=== PATIENT | female | born 1995 | race Caucasian/White ===

== ENCOUNTER 2019-07-06 09:32 | Day surgery (SDC) | payer SELFPAY ==
[2019-07-02 11:37] VITALS: BMI 29.7
[2019-07-06] MEDS ORDERED: TETRACAINE 0.5% OPHTH SOLN 2 ML BOTTLE ONE (11:26)
[2019-07-06] MEDS ORDERED: LIDOCAINE 1%/EPI 1:100000 (20 ML MULTI DOSE VIAL) ONE (11:26)
[2019-07-06] MEDS ORDERED: ERYTHROMYCIN 0.5% OPHTHALMIC OINTMENT 3.5 GM TUBE ONE (11:26)
[2019-07-06] MEDS ORDERED: POVIDONE-IODINE 5% OPHTHALMIC PREP 30 ML SOLUTION ONE (11:26)
[2019-07-06] MEDS ORDERED: MIDAZOLAM HCL 2 MG/2 ML SINGLE DOSE VIAL ONE ×2 (11:45→12:09)
[2019-07-06] MEDS ORDERED: GLYCOPYRROLATE 0.2 MG/1 ML VIAL ONE (11:50)
[2019-07-06] MEDS ORDERED: PROPOFOL 20 ML ONE ×4 (11:53→12:12)
[2019-07-06] MEDS ORDERED: ceFAZolin SODIUM 1 GM VIAL ONE (11:59)
[2019-07-06] MEDS ORDERED: ONDANSETRON 4 MG/2 ML VIAL IVPUSH PRN (12:37)
[2019-07-06] MEDS ORDERED: oxyCODONE HCL 5 MG TABLET PO PRN (12:37)
[2019-07-06] MEDS ORDERED: LACTATED RINGERS SOLUTION 1,000 ML IV SCH (12:45)
--- NOTE | 2019-07-06 13:02 | OP ---
DATE OF OPERATION: 07/06/2019 PREOPERATIVE DIAGNOSIS: Ptosis, left upper lid. POSTOPERATIVE DIAGNOSIS: Ptosis, left upper lid. PROCEDURE: Marion muscle resection, left upper lid 8.5 mm. SURGEON: Marco Tovar MD ANESTHESIA: Local with sedation. COMPLICATIONS: None. ESTIMATED BLOOD LOSS: 1-2 mL. OPERATIVE REPORT: Patient was brought to the operating room, placed on the operating room table. Vital signs were monitored by anesthesia. Tetracaine was placed in both eyes. Time-out was performed confirming the left upper lid. Intravenous sedation was administered, and 1% Xylocaine, 1:100,000 epinephrine was injected subconjunctivally at the top of the tarsus for 0.5 mL. An additional 0.25 to 0.5 mL was injected subcutaneously in the central left upper lid, and massage was applied for hemostasis. Patient was prepped and draped in the usual sterile fashion exposing both eyes. Right eyelid was manually closed. A 4-0 silk traction suture was passed through the central lid margin left upper lid. The lid was everted over a Desmarres retractor and 4.25 mm above the central peak of the tarsus confirmed with a caliper, which was checked with a ruler. Suresh was made and then 7 mm nasal and temporal to this, additional alexander were made in the conjunctiva. A 6-0 silk suture was passed through each of these alexander and then the conjunctiva was elevated from the overlying levator muscle by gentle traction with the forceps it from the levator. The Desmarres was removed, and the 6-0 silk suture was used to retract the conjunctiva and Marion muscle in a folded over fashion. Putterman clamp was then placed over conjunctiva and Marion muscle incorporating it closed, and a double arm 6-0 plain suture was run from temporal to nasal 1.5 mm away from the clamp in a mattress fashion. Incorporated tissues were then excised with a 15 blade and the same suture was run from nasal to temporal in a baseball stitch fashion. Each arm was then brought through the conjunctiva and then through the full-thickness incision exiting on the temporal aspect of the lid externally where the wound was checked and seen to be closed tightly with a suture, and the suture was tied externally. Erythromycin ointment was placed in the eye and on the suture of the left upper lid and the patient was taken to the recovery room in stable condition. MARCO TOVAR M.D. RICHAR/[id number]
[2019-07-06] MEDS ORDERED: oxyCODONE HCL 5 MG TABLET ONE (13:38)
[2019-07-06 15:18] VITALS: TEMP 97.9
[2019-07-06 16:25] VITALS: BP 120/64; PULSE 65
== END 2019-07-06 14:30 | disposition home or self-care (01) ==
LOC: FASU 09:32
PROVIDERS: ATTEND Ophthalmology
PROC: 08SP0ZZ Reposition Left Upper Eyelid, Open Approach (ICD-10-PCS; principal; 2019-07-06 12:05)
DX: H02.422 Myogenic ptosis of left eyelid (principal)
CPT/HCPCS: 84703; 94760